=== PATIENT | male | born 1970 | race Caucasian/White ===

== ENCOUNTER 2017-11-15 06:26 | Observation (INO) ==
[2017-11-15] MEDS ORDERED: ONDANSETRON 4 MG/2 ML VIAL IVP ONE (06:52)
[2017-11-15] MEDS ORDERED: KETOROLAC 15 MG/1 ML VIAL IVP ONE (06:52)
[2017-11-15] MEDS ORDERED: Sodium Chloride 0.9% 1,000 ML PRIMARY IV ONE (06:52)
--- NOTE | 2017-11-15 06:57 | PDOC ---
Male Genitourinary Problem HPI - General Chief Complaint: Genitourinary Complaint Stated Complaint: RIGHT LOW BACK/FLANK/GROIN PAIN SINCE 2300 Date Seen by Provider: 11/15/17 Time Seen by Provider: 06:47 Source: POSITIVE: Patient Exam Limitations: POSITIVE: No limitations Nurse's Notes Reviewed & Considered: Yes - History of Present Illness Initial Comments: This is a well-developed, well-nourished, obese, 47-year-old male, complaining of right back and abdominal pain. Patient awoke at 2300 hrs. last night with sharp right costovertebral angle pain that was unrelenting. He took approximately a gram of Tylenol at 2300 hrs. and again at 0400 hrs. this morning. He has gained no relief. He has diaphoresis, nausea, abdominal pain. He denies any dysuria or hematuria, no vomiting, no diarrhea, no headache, no sore throat, no chest pain or shortness of breath, no rashes. Body Location Affected: REPORTS: Abdomen Timing: REPORTS: Abrupt Duration: <24 hours Severity: Severe Quality: REPORTS: Cramping, "Pain", Sharpness, Stabbing, Throbbing Context: DENIES: Drug Use, Lifting, Trauma, Recent Surgery, Other (please comment) Sexual History: REPORTS: Non-Contributory Associated Symptoms: REPORTS: Pain, Flank Pain, Abdominal Pain, Right Similar Symptoms Previously: No Recent Care Received: REPORTS: Denies Any Prior Injuries Related to Current Complaint?: No - Patient Home Medications Home Medications: Home Medications Acetaminophen [Tylenol] 500 mg PO PRN PRN 11/15/17 Aspirin [Aspir 81] 81 mg PO DAILY 11/15/17 Bupropion HCl [Bupropion Xl] 150 mg PO DAILY 11/15/17 Glipizide [Glipizide Xl] 5 mg PO DAILY 11/15/17 Lamotrigine [Lamotrigine ER] 25 mg PO DAILY 11/15/17 Lisinopril 20 mg PO DAILY 11/15/17 Rosuvastatin Calcium 10 mg PO DAILY 11/15/17 Venlafaxine HCl ER [Effexor Xr] 75 mg PO 11/15/17 Venlafaxine HCl [Venlafaxine HCl ER] 150 mg PO 11/15/17 metFORMIN ER Tab [Glucophage XR Tab] 1,000 mg PO DAILY 11/15/17 - Patient Allergies Allergies/Adverse Reactions: Allergies 3 Allergy/AdvReac Type Severity Reaction Status Date / Time No Known Allergies Allergy Verified 11/15/17 06:41 ROS - Limitations ROS Limitations: No Limitations Constitution: REPORTS: Diaphoresis Cardiovascular: REPORTS: Denies Cardiac Symptoms Respiratory: REPORTS: Denies Resp Symptoms Neurological: REPORTS: Denies Neuro Symptoms Gastrointestinal: REPORTS: Abdominal Pain, Nausea Endocrine: REPORTS: Denies Symptoms Musculoskeletal: REPORTS: Back Pain Genitourinary: REPORTS: Flank Pain Eyes: REPORTS: Denies Symptoms ENT: REPORTS: Denies Symptoms Skin: REPORTS: Denies Skin Symptoms Lympathic: REPORTS: Denies Lympathic Symptoms Immunologic: POSITIVE: Denies Symptoms Psychiatric: POSITIVE: Denies Psych Symptoms Male Genitourinary Exam - General Appearance General Appearance: POSITIVE: Alert, Cooperative, No Evidence of Trauma, Moderate Distress - Abdomen Abdomen: Soft: (All Quadrants), Normal Bowel Sounds: (All Quadrants), Denies Tenderness: (LLQ), (LUQ), (RUQ), No Splenomegaly: (All Quadrants), No Hepatomegaly: (All Quadrants), No Guarding: (All Quadrants), No Rebound: (All Quadrants), No Palpable Pulse: (All Quadrants), No Palpabale Mass: (All Quadrants), No Distention: (All Quadrants), No Rigidity: (All Quadrants), Tenderness Noted: (RLQ) - HEENT HEENT: POSITIVE: Head Inspection Nml, Eyes Inspection Nml, Ears Inspection Nml, Nose Inspection Nml, Oral/Dental Inspect. Nml, Pharynx Inspect. Nml, PERRL, EOMI - Neck Neck: POSITIVE: Normal Inspection, No Apparent Injury - Respiratory Respiratory: POSITIVE: No Respiratory Distress, Breath Sounds Normal, Chest Non- Tender - Cardiovascular Cardiovascular: POSITIVE: Heart Sounds Normal, Equal Pulses, Strong Pulses, Tachycardia Peripheral Pulses: Radial (R): 4+ - Back Back: POSITIVE: CVA Tenderness (R) - Extremities Extremity: Non-Tender: (All Extremities), Normal ROM: (All Extremities), Normal Inspection: (All Extremities), Pelvis Stable: (All Extremities) - Neurological / Psychological Neurological: POSITIVE: Affect Apporpriate, Oriented X3, Motor Normal, Sensation Normal - Skin Skin: POSITIVE: Intact, Normal For Race, Warm, No Rash, Diaphoresis Male Genitourinary Progress - Results Reviewed by me Xrays/CTs/US Reviewed by me: Yes Discussed with Radiologist: Yes Lab Results Reviewed by Me: Yes CBC and BMP: 11/15/17 06:40 11/15/17 06:40 EKG Interpreted/Reviewed By Me:: Yes (sinus tachycardia with rate 101 beats a minute) EKG Interpretation:: POSITIVE: Abnormal EKG - Patient's Progress Pain Medication Addressed: POSITIVE: Yes Re-Examine Time:: 09:09 Status: POSITIVE: Improved MDM / ED Course: Patient was evaluated, an IV started, blood drawn and sent to lab for studies, CT scan of his abdomen was obtained. Findings: Urinalysis is negative. CBC shows a white count elevated to 12. CMP shows glucose of 300, CT scan of his abdomen shows cholelithiasis. Assessment: Cholelithiasis Plan: The end of my shift is occurred while awaiting consultation and evaluation by Dr. Jose driver the on-call general surgeon. I have turned over care to Dr. Sotero Roa. - Consult Consult (If Yes, Name of Consulting MD & Time Called): Yes (Dr. Alfonso Driver 09:11) Consulting MD will see pt:: POSITIVE: In ED Counseled: POSITIVE: Patient, RE: Lab Results, RE: Radiology Results, RE: DX, RE : Need for F/U Patient Care Time - Estimated PCT Patient Care Time (In Minutes): 45 Vital Signs - Recent Vital Signs Vital Signs: Vital Signs (Last 8 hours) Temp Pulse Resp BP Pulse Ox 11/15/17 08:24 80 14 132/91 97 11/15/17 06:37 95.6 F L 108 H 18 155/102 96 - VS Reviewed Vital Signs Reviewed: Yes Discharge Clinical Impression: Abdominal pain, Cholelithiasis Condition: Stable Patient Instructions Given at Discharge: Biliary Colic (ED), Gallstones (ED) Follow Up With: NONE,NONE [Primary Care Provider] -
--- NOTE | 2017-11-15 07:02 | EKG ---
[address] [address] Measurements Intervals Rosalia Rate: 101 P: 41 PA: 156 QRS: 7 QRSD: 93 T: 36 QT: 348 QTc: 406 Interpretive Statements SINUS TACHYCARDIA ABNORMAL RHYTHM ECG No previous ECG available for comparison Electronically Signed On 11-15-17 08:26:10 MDT by Philipp Morin MD [email or web address]
[2017-11-15 07:04] LABS: BASOPHILS # (AUTO) 0.02 10*3/UL; BASOPHILS % (AUTO) 0.2 % (0-1); EOSINOPHILS % (AUTO) 0.9 % (0-8); Hematocrit [HCT] 42.4 % (42.0-52.0); Hemoglobin [HGB] 14.8 g/dL (14.0-18.0); LYMPHOCYTES # (AUTO) 1.29 10*3/uL; MEAN CORPUSCULAR HEMOGLOBIN 31.2 PG (27-31); MEAN CORPUSCULAR HGB CONC 34.9 g/dL (33-37); MEAN CORPUSCULAR VOLUME 89.3 FL (80-90); MEAN PLATELET VOLUME 9.7 FL (7.4-12.2); MONOCYTES # (AUTO) 0.37 10*3/UL (0.3-0.8); MONOCYTES % (AUTO) 3.3 % (5-15); NEUTROPHILS # (AUTO) 9.51 10*3/UL; NEUTROPHILS % (AUTO) 83.8 % (50-80); RED BLOOD COUNT 4.75 10^6/uL (4.70-6.10)
[2017-11-15 07:14] LABS: BLOOD UREA NITROGEN 17 mg/dL (7-22); BUN/CREATININE RATIO 21.25 (6-20); SERUM ALBUMIN 4.6 g/dL (3.5-4.8)
[2017-11-15 07:19] LABS: PLATELET MORPHOLOGY COMMENT NORMAL MORPHOLOGY (NORM); RBC MORPHOLOGY COMMENT NORMAL MORPHOLOGY (NORM); WBC MORPHOLOGY COMMENT NORMAL MORPHOLOGY (NORM)
[2017-11-15] MEDS ORDERED: MORPHINE SULFATE 4 MG/1 ML IVP ONE ×2 (07:25→08:08)
[2017-11-15 07:30] LABS: BILIRUBIN,URINE NEGATIVE (NEG); CLARITY,URINE CLEAR (CLEAR); COLOR,URINE YELLOW (Y); GLUCOSE, URINE (UA) 500 mg/dL (NEG); OCCULT BLOOD,URINE NEGATIVE (NEG); PH,URINE 5.5 (5.0-8.5); PROTEIN,URINE NEGATIVE (NEG); UROBILINOGEN,URINE 0.2 EU/dL (0.2)
[2017-11-15 07:36] LABS: URINE SAMPLE TYPE CLEAN CATCH URINE
--- NOTE | 2017-11-15 08:36 | DI ---
CT Abdomen/Pelvis WO Contrast,11/15/2017 6:58 AM: Clinical History: Right flank and abdominal pain. Previous Exam: None at this facility. Findings: Multiple helically acquired CT images are obtained through the abdomen and pelvis without contrast, a nd demonstrate multiple layering stones within the gallbladder. The common bile duct is normal in siz e. There is mild fatty infiltration of liver. The spleen, adrenals, kidneys and pancreas are unremarkabl e. Peripheral vascular calcifications are noted within what appears to be a small splenic artery aneu rysm. This aneurysm measures 16 mm in diameter. There is no free air nor free fluid. The appendix is normal. Kidneys are grossly normal without stone s nor hydronephrosis. Mild degenerative changes of the hips are noted as well as degenerative changes of the lumbar spine. Lung bases are clear. Impression: 1. Cholelithiasis. 2. 16 mm splenic artery aneurysm. Generally, aneurysms below 2 cm carried and negligible risk of rupt ure.
[2017-11-15] MEDS ORDERED: HYDROmorphone 2 MG/1 ML IVP ONE (10:40)
[2017-11-15] MEDS ORDERED: Sodium Chloride 0.9% vial 50 ML ONE (10:43)
[2017-11-15] MEDS ORDERED: BUPIVACAINE 0.25% W/ EPI - 10 ML VIAL ONE ×2 (10:43→10:44)
[2017-11-15] MEDS ORDERED: Iothalamate Meglumine 30 ML VIAL IV ONE (10:44)
[2017-11-15] MEDS ORDERED: Lactated Ringers 1,000 ML PRIMARY IV SCH (10:45)
[2017-11-15] MEDS ORDERED: HYDROmorphone 2 MG/1 ML ONE (10:51)
[2017-11-15] MEDS ORDERED: Lactated Ringers 1,000 ML PRIMARY IV ONE ×2 (10:52→11:30)
--- NOTE | 2017-11-15 10:52 | CONSULT ---
Consult Note - Consult Consult Date: 11/15/17 Reason for Consult: PreOp Consulation : General Surgery Requesting Physician: Dr. 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 He ate some stew last night for dinner and went to sleep. He awoke at approximately 11 PM with severe back and right upper quadrant abdominal pain. The pain seemed to radiate around from the front to the back and the back to the front. He was nauseated, bloated, and diaphoretic. He took a gram of Tylenol twice through the night. He had no relief. He presented to the emergency room for the same. CT scan was done which shows multiple layering gallstones. There appears to be one wedged in the neck of the gallbladder. Common bile duct is normal in size. There is some mild fatty infiltration of the liver. His white count is 11,300. His bilirubin is normal as is his alkaline phosphatase and ALT. His AST is slightly elevated at 63. His urinalysis is negative. His lipase was normal. It appears this is acute cholecystitis with cholelithiasis. We are unable to get him comfortable in the emergency room with 2x4 mg doses of morphine. We will plan to proceed with laparoscopic cholecystectomy with intraoperative cholangiogram in the near future. 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 We'll plan to admit him overnight observation until he can make those arrangements. Incidentally noted is a 1.6 cm splenic artery aneurysm which is calcified. Nothing needs to be done with it at this time. The patient should have a follow -up CT in 6-12 months to document stability. Typically a sub-2 cm aneurysm needs no treatment. Review of Systems - Constitutional Constitutional: REPORTS: Night Sweats - Respiratory Respiratory: DENIES: Negative System Review, Cough, Sputum, Dyspnea At Rest, Dyspnea with Exertion, Pleuritic Pain, Hemoptysis, Wheezing, Other, See HPI - Cardiovascular Cardiovascular: DENIES: Negative System Review, Chest Pain, Edema, Syncope, Palpitations, Orthopnea, Paroxysmal Nocturnal Dyspnea, Other, See HPI - Gastrointestinal Gastrointestinal / Abdominal: REPORTS: Nausea, Abdominal Pain, Bloating, See HPI Past Medical History Medical History: Diabetes, hypertension, hyperlipidemia, depression. Surgical History: Umbilical herniorrhaphy with Marlex mesh placement. Left knee arthroscopy. Tobacco Use: Current Some Day Smoker Do you dip or chew tobacco: No In the Past 12 Months, Have Used or Abuse Any of the Following Substance: None Alcohol Use: Occasionally (Approximately once a week.) Medication / Allergies Home Medications: Home Medications 3 Medication Instructions Recorded Confirmed Type Acetaminophen [Tylenol] 500 mg PO PRN PRN 11/15/17 11/15/17 History Aspirin [Aspir 81] 81 mg PO DAILY 11/15/17 11/15/17 History Bupropion HCl [Bupropion Xl] 150 mg PO DAILY 11/15/17 11/15/17 History Glipizide [Glipizide Xl] 5 mg PO DAILY 11/15/17 11/15/17 History Lamotrigine [Lamotrigine ER] 25 mg PO DAILY 11/15/17 11/15/17 History Lisinopril 20 mg PO DAILY 11/15/17 11/15/17 History Rosuvastatin Calcium 10 mg PO DAILY 11/15/17 11/15/17 History Venlafaxine HCl ER [Effexor Xr] 75 mg PO 11/15/17 History Venlafaxine HCl [Venlafaxine HCl 150 mg PO 11/15/17 History ER] metFORMIN ER Tab [Glucophage XR 1,000 mg PO DAILY 11/15/17 11/15/17 History Tab] Allergies/Adverse Reactions: Allergies 3 Allergy/AdvReac Type Severity Reaction Status Date / Time No Known Allergies Allergy Verified 11/15/17 06:41 Results - Labs CBC and BMP: 11/15/17 06:40 11/15/17 06:40 - Imaging Status: Image Reviewed by Me, Report Reviewed by Me Exam - Vitals Vital Signs: Vital Signs Temperature 95.6 F Temperature Source Temporal Artery Scan Pulse Rate [Pulse Oximeter] 80 Respiratory Rate 14 Blood Pressure [Left Arm] 132/91 Pulse Ox 97 Oxygen Delivery Method Room Air Height 5 ft 10 in Weight 300 lb - General General Appearance: Cooperative, Morbidly Obese Additional General Exam Details: Very uncomfortable. It is hard for him to find a position of comfort. He is wiggling around in the bed constantly. - Eye Eye Exam: POSITIVE: No Scleral Icterus - Respiratory Respiratory Exam: POSITIVE: Clear to Auscultation - Bilaterally, Breathing Non Labored - Cardiovascular Cardiovascular Exam: POSITIVE: RRR, No Murmur - GI/Abdominal GI/Abdominal Exam: POSITIVE: Soft (Everywhere except the right upper quadrant.) , Diminished Bowel Sounds, Positive for RUQ Pain Additional GI/Abdominal Exam Details: Right upper quadrant tenderness with voluntary guarding. Incision which is well -healed. Upper abdominal diastases. - Rectal Rectal Exam: POSITIVE: Deferred - Neurological Neurological Exam: POSITIVE: Alert, Oriented x 3 - Psychiatric Psychiatric Exam: POSITIVE: Normal Affect, Normal Mood Assessment and Plan - Patient Problems (1) Cholelithiasis and acute cholecystitis without obstruction Current Visit: Yes Status: Acute Priority: High Onset Date: 11/14/17 Comment: Patient is still very uncomfortable despite 2 doses of IV morphine. He remains quite tender as well as diaphoretic. We will proceed with laparoscopic cholecystectomy with intraoperative cholangiogram. The possibility of open cholecystectomy has been discussed.The procedure has been discussed with the patient in complete yet simple terms including benefits, risks, and alternatives. All questions have been answered. Informed consent has been obtained. Code(s): K80.00 - Calculus of gallbladder with acute cholecystitis without obstruction (2) Splenic artery aneurysm Current Visit: Yes Status: Acute Priority: Medium Onset Date: Unknown Comment: 1.6 cm calcified splenic artery aneurysm. No acute therapy needed. Recommend follow-up CT in 6-12 months to document stability. Code(s): I72.8 - Aneurysm of other specified arteries
[2017-11-15] MEDS ORDERED: SUFENTANIL 50 MCG/1 ML ONE (10:56)
[2017-11-15] MEDS ORDERED: KETAMINE 100 MG/1 ML - 5 ML ONE (10:56)
[2017-11-15] MEDS ORDERED: fentaNYL Inj 250 MCG/5 ML VIAL ONE (10:56)
[2017-11-15] MEDS ORDERED: MIDAZOLAM 5 MG/1 ML ONE (10:56)
[2017-11-15] MEDS ORDERED: PROPOFOL 10 MG/1 ML (200 MG/20 ML) VIAL IV ONE (10:56)
[2017-11-15] MEDS ORDERED: ROCURONIUM 10 MG/1 ML - 5 ML VIAL IVP ONE (10:57)
[2017-11-15] MEDS ORDERED: LIDOCAINE MPF 2% - 5 ML (20 MG/1 ML) ONE ×2 (11:02→12:21)
[2017-11-15] MEDS: ceFAZolin Inj 3 GM in Sodium Chloride 0.9% 100 ML IV SCH ×2 (11:20→11:30)
[2017-11-15] MEDS ORDERED: BUPivacaine Inj 0.5% PF (5mg/ml) 10ml vial ONE (12:09)
[2017-11-15] MEDS ORDERED: SUGAMMADEX SODIUM 200 MG/2 ML VIAL IV ONE (12:19)
[2017-11-15] MEDS ORDERED: OXYMETAZOLINE 0.05% 15 ML NASAL SPRAY ONE (12:21)
[2017-11-15] MEDS ORDERED: KETOROLAC 30 MG/1 ML VIAL ONE (12:27)
[2017-11-15] MEDS ORDERED: Nalbuphine Inj 20 MG/ML Ampule ONE (12:43)
--- NOTE | 2017-11-15 12:52 | GEN.OPNOTE ---
Operative Note Surgery Date: 11/15/17 Preoperative Diagnosis: Acute cholecystitis and cholelithiasis. Postoperative Diagnosis: Acute cholecystitis and cholelithiasis. Procedure: Laparoscopic cholecystectomy with intraoperative cholangiogram. Surgeon: Jose Driver MD Cash Surrender Calculator: Hernando Ly MD Anesthesia Provider: Karlos Stinson CRNA Anesthesia Type: General Estimated Blood Loss (mL): 5 Fluids: 1500 mL of crystalloid. 3 g of IV Ancef at the start of the procedure. 30 mg of IV Toradol at the end of the procedure. Pathology: Specimen to pathology. Indications: Right upper quadrant and back pain with nausea, diaphoresis, and exquisite right upper quadrant tenderness. CT scan shows multiple layering gallstones. One appears to be lodged in the neck of the gallbladder. Findings: Acute airway necrosis of the gallbladder with a stone lodged in the neck of the gallbladder. Intraoperative cholangiogram shows a normal sized duct with a normal distal taper. There is free flow into the duodenum. There were no filling defects. There is a normal branching pattern. Complications: None. Operative Summary: The patient was taken to the operating room and placed on the operating table in the supine position. Following induction of general anesthetic the abdomen was prepped and draped in a sterile fashion. A surgical timeout was done. I chose to place the trocar above the umbilicus as he has had a umbilical hernia with Marlex mesh placement. The supraumbilical region was infiltrated with 1/4 % Marcaine with epinephrine. An incision was made. The abdominal wall was elevated. A Veres needle was placed without apparent injury and a pneumoperitoneum was induced. The veres needle was withdrawn. A 10 mm trocar was placed without apparent injury and a laparoscope was inserted. Under direct visualization and following Marcaine injection a 10 mm trocar was placed in the epigastrium and 2x5 mm trochars were placed along the costal margin. The gallbladder was quite tense and acutely inflamed. There appeared to be some early necrosis. It was decompressed with a long needle and suction. The gallbladder was grasped and elevated. Blunt dissection was used to free the cystic duct. A clip was placed along the neck of the gallbladder. A hole was made in the side wall of the cystic duct. A Jose cholangiocatheter was inserted. Intraoperative cholangiogram was taken and was normal as previously dictated. The Jose catheter was withdrawn. 2 clips were placed on the distal cystic duct and the duct was divided. The cystic artery was isolated. 2 clips were placed proximally and one distally and the artery was divided. The gallbladder was taken from the hepatic bed using electrocautery. Hemostasis was assured. Appropriate irrigation and suctioning were performed. Final check for hemostasis was made. 5 mL of Marcaine was placed in the gallbladder fossa and 5 over the dome of the liver. The laparoscope was moved to the epigastric port. The gallbladder was placed in an Endopouch. The gallbladder was grasped with a large grasper and brought up to the umbilical trocar site. The fascial defect at the umbilicus was slightly increased in size. The gallbladder was brought out through the trocar site without difficulty. The fascial defect at the umbilicus was closed with a running 0 Vicryl. A final check for hemostasis was made. The CO2 was burped from the abdominal cavity. The trochars were removed under direct visualization. The epigastric trocar site fascia was closed with a simple stitch of 0 Vicryl. The skin wounds were closed with inverted interrupted or running subcuticular 4-0 Monocryl followed by Mastisol Steri-Strips and an appropriate dressing. Patient tolerated the procedure well without complication. Patient was taken to the recovery room in stable condition. All counts were correct. Patient Problems - Patient Problem List (1) Cholelithiasis and acute cholecystitis without obstruction Current Visit: Yes Status: Acute Onset Date: 11/14/17 Priority: High Code(s): K80.00 - Calculus of gallbladder with acute cholecystitis without obstruction Category: Medical (2) Splenic artery aneurysm Current Visit: Yes Status: Acute Onset Date: Unknown Priority: Medium Code(s): I72.8 - Aneurysm of other specified arteries Category: Medical Procedure Codes - Surgical Procedures Primary Surgical Procedure: 86139 : Cholecsytectomy w/Cholangiograph
[2017-11-15] MEDS ORDERED: ONDANSETRON 4 MG/2 ML VIAL IVP PRN ×2 (12:58→14:16)
[2017-11-15] MEDS ORDERED: HYDROmorphone 2 MG/1 ML IVP PRN (12:58)
[2017-11-15] MEDS ORDERED: LIDOCAINE W/ SODIUM BICARB 0.5 ML SYR SUBD PRN (12:58)
--- NOTE | 2017-11-15 12:59 | CRNA.PROGR ---
Anesthesia Time - - Start date: 11/15/17 End date: 11/15/17 - Procedure/Recovery Time Anesthesia : Time In: 11:15 Anesthesia : Time Out: 13:00 Anesthesia : Total Time: 105 - Total Anesthesia Time Total Anesthesia Time (minutes): 105 - Other Weight: 136.078 kg Height: 5 ft 10 in Body Mass Index (BMI): 43.0 Physical Status: P2 Anesthesia Type: General Anesthesia : ET
--- NOTE | 2017-11-15 13:00 | CRNA.PROGR ---
Anesthesia Recovery Phase I - Post Anesthesia Evaluation Patient's Condition on Arrival in Phase I: Stable Pain Level: 0
[2017-11-15] MEDS: LABETALOL 20 MG/4 ML (5 MG/1 ML) SYRINGE IVP ONE ×3 (13:27→14:01)
[2017-11-15] MEDS ORDERED: HYDRALAZINE 20 MG/1 ML ONE (13:39)
[2017-11-15] MEDS: HYDRALAZINE 20 MG/1 ML IVP ONE ×4 (13:42→14:00)
--- NOTE | 2017-11-15 14:12 | DI ---
XR CHOLANGIOGRAM INTRAOP,11/15/2017 10:45 AM: Clinical History: Abdominal pain and biliary dyskinesis. Previous Exam: None at this facility. Findings: Multiple images are obtained from an intraoperative cholangiogram, and demonstrate normal common bile duct. There is no evidence of filling defect. The cystic duct is normal. The pancreatic duct is not well seen. There is free spillage into the duodenum. Patient is status post cholecystectomy. Impression: Normal intraoperative cholangiogram.
[2017-11-15] MEDS ORDERED: MORPHINE SULFATE 2 MG/1 ML IVP PRN (14:16)
[2017-11-15] MEDS: KETOROLAC 15 MG/1 ML VIAL IVP SCH ×2 (17:41→23:50)
[2017-11-15] MEDS: Lactated Ringers 1,000 ML PRIMARY IV SCH (17:42)
[2017-11-15 17:44] VITALS: RESP 20
[2017-11-15] MEDS: DOCUSATE 100 MG CAPSULE PO SCH (20:31)
[2017-11-15] MEDS: ceFAZolin Inj 2gm (Premix) 2 GM/50 ML BAG IV SCH (20:32)
[2017-11-16] MEDS: ceFAZolin Inj 2gm (Premix) 2 GM/50 ML BAG IV SCH ×2 (02:52→12:24)
[2017-11-16] MEDS: Lactated Ringers 1,000 ML PRIMARY IV SCH ×2 (05:16→10:09)
[2017-11-16] MEDS: KETOROLAC 15 MG/1 ML VIAL IVP SCH ×2 (06:10→12:24)
[2017-11-16 08:22] VITALS: O2SAT 91
[2017-11-16] MEDS: DOCUSATE 100 MG CAPSULE PO SCH (08:28)
[2017-11-16] MEDS: HYDROcodone-APAP 7.5 MG-325 MG TABLET PO PRN ×2 (08:30→13:07)
[2017-11-16] MEDS: VENLAFAXINE XR 75 MG CAP PO SCH ×2 (08:32→13:07)
[2017-11-16] MEDS ORDERED: Non-Formulary Drug (Venlafaxine Hcl [Venlafaxine Hcl Er] 150 MG) PO SCH (09:00)
[2017-11-16] MEDS ORDERED: lamoTRIgine 100 MG TABLET PO SCH (09:00)
[2017-11-16] MEDS ORDERED: metFORMIN ER 500 MG TABLET PO SCH (09:00)
[2017-11-16] MEDS ORDERED: LISINOPRIL 20 MG TABLET PO SCH (09:00)
[2017-11-16] MEDS ORDERED: buPROPion XL Tab 150 MG TAB PO SCH (09:00)
[2017-11-16] MEDS ORDERED: VENLAFAXINE XR 75 MG CAP PO SCH (09:00)
[2017-11-16] MEDS ORDERED: LAMOTRIGINE 25 MG PO SCH (09:00)
--- NOTE | 2017-11-16 11:42 | CRNA.PROGR ---
Anesthesia Note - Progress Notes Anesthesia Progress Note: Sitting up in a chair. States he's mostly comfortable. Nausea and pain R sided chest and abdomen he describes as being either significantly better or absent now. Vomitied yesterday three times, but not today. Ate breakfast with no nausea. Had a little sore throat yesterday-now gone. No apparent anesthetic difficulties.
--- NOTE | 2017-11-16 12:04 | DCSUMMARY ---
Discharge Summary Admit Date: 11/15/17 Discharge Date: 11/16/17 Admitting Diagnosis: acute cholecystitis with cholelithiasis. Discharge Diagnosis: Same. Primary Surgery and Date: Laparoscopic cholecystectomy with intraoperative cholangiogram on 11/15/2017 Hospital Course: Patient was admitted with acute cholecystitis and cholelithiasis. He underwent an uncomplicated laparoscopic cholecystectomy with intraoperative cholangiogram. He had a stone in the neck of his gallbladder. He had early necrosis of his gallbladder. Since surgery was done well. He did try to eat and eat and drink last night and had some emesis. This morning he kept down his breakfast. He took one norco and is comfortable. He is passing gas. He is voiding. He is ambulating. He is ready to be discharged home for outpatient follow-up. Patient is from [place]. A ride has been arranged to the airport. He will fly home tonight and follow-up with his physician at home. Exam - Vitals Vital Signs: Vital Signs Temperature 98.5 F Temperature Source Temporal Artery Scan Pulse Rate [Pulse Oximeter] 99 Pulse Rate 100 Respiratory Rate 20 Blood Pressure [Left Arm] 122/82 Blood Pressure 140/100 Pulse Ox 91 Oxygen Flow Rate 2 Oxygen Delivery Method Room Air Height 5 ft 10 in Weight 300 lb - General General Appearance: No Acute Distress, Cooperative - Respiratory Respiratory Exam: POSITIVE: Clear to Auscultation - Bilaterally, Breathing Non Labored - Cardiovascular Cardiovascular Exam: POSITIVE: RRR, No Murmur - GI/Abdominal GI/Abdominal Exam: POSITIVE: Normal Bowel Sounds, Non Distended, Soft Additional GI/Abdominal Exam Details: The dressings are clean, dry, and intact. Abdomen is soft with some minimal incisional tenderness. Good bowel tones. - Neurological Neurological Exam: POSITIVE: Alert, Oriented x 3 - Psychiatric Psychiatric Exam: POSITIVE: Normal Affect, Normal Mood Patient Problems - Patient Problem List (1) Cholelithiasis and acute cholecystitis without obstruction Current Visit: Yes Status: Acute Onset Date: 11/14/17 Priority: High Comment: Status post laparoscopic cholecystectomy with intraoperative cholangiogram. Doing well. Ready to be discharged home. Code(s): K80.00 - Calculus of gallbladder with acute cholecystitis without obstruction Category : Medical (2) Splenic artery aneurysm Current Visit: Yes Status: Acute Onset Date: Unknown Priority: Medium Comment: Follow-up with primary care provider on return to [place]. Recommend follow-up CT in 6-12 months. Code(s): I72.8 - Aneurysm of other specified arteries Category: Medical
[2017-11-16 14:36] VITALS: BP 114/74; TEMP 97.4
[2017-11-16] MEDS ORDERED: Rosuvastatin Tab 20 MG TAB PO SCH (21:00)
== END 2017-11-16 14:27 | disposition home or self-care (01) ==
LOC: EDBD → ER 06:26 → MED/SURG 10:50 → OR 10:50
PROVIDERS: ADMIT Surgery; ATTEND Surgery